=== PATIENT | male | born 1995 | race Caucasian/White ===

== ENCOUNTER 2016-06-06 01:19 | Emergency (ER) | payer BC ==
[~2016-06-06] VITALS: Ht 175.3 cm; Wt 68.2 kg
[2016-06-06 01:23] VITALS: BP 159/92
[2016-06-06 02:03] VITALS: PULSE 95
== END 2016-06-06 02:04 | disposition home or self-care (01) ==
LOC: COL.ER 01:19
DX: S01.111A Laceration without foreign body of right eyelid and periocular area, initial encounter (principal); W01.198A Fall on same level from slipping, tripping and stumbling with subsequent striking against other object, initial encounter; Y92.480 Sidewalk as the place of occurrence of the external cause